=== PATIENT | female | born 1955 | race Caucasian/White ===

== ENCOUNTER 2020-02-04 17:26 | Emergency (ER) | payer MEDICARE, MEDICAID, SELFPAY ==
[2020-02-04 17:27] VITALS: BP 140/97; PULSE 127; RESP 20; TEMP 36.6; O2SAT 96; BMI 18.5
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
[2020-02-04] MEDS: Morphine 4 MG/ML Syringe IV (18:55)
--- NOTE | 2020-02-04 18:56 | RAD_ITS ---
STUDY: X-RAY - RIGHT KNEE REASON FOR EXAM: Female, 65 years old. PAIN TO PATELLA WITH SWELLING S/P FALLING ONTO KNEE TECHNIQUE: 2 view(s) of the knee. COMPARISON: None. FINDINGS: Normal visualized distal femur. Normal visualized proximal tibia and fibula. Normal proximal tibiofibular articulation. Normal medial femorotibial compartment. Normal lateral femorotibial compartment. Normal patellofemoral articulation. There is a large volume joint effusion. The soft tissue structures are unremarkable. RAD/Knee 1 or 2 Views IMPRESSION: Large effusion. No fracture identified. Electronically Signed: Guero Thompson MD at 19:32 EDT , Service support ,
[2020-02-04 21:02] VITALS: RESP 18
== END 2020-02-04 21:03 | disposition home or self-care (01) ==
PROVIDERS: Emergency Provider Emergency Medicine
DX: M25.461 Effusion, right knee (principal); S80.01XA Contusion of right knee, initial encounter; W01.0XXA Fall on same level from slipping, tripping and stumbling without subsequent striking against object, initial encounter; Y93.9 Activity, unspecified; Y92.9 Unspecified place or not applicable; F17.200 Nicotine dependence, unspecified, uncomplicated
CPT/HCPCS: 73560; 96374; 99284; A4216

== ENCOUNTER 2021-02-08 21:22 | Emergency (ER) | payer MEDICARE, MEDICAID, SELFPAY ==
[2021-02-08 21:22] VITALS: BP 135/83; PULSE 85; RESP 22; TEMP 36.4; O2SAT 92; BMI 18.5
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
--- NOTE | 2021-02-08 22:07 | EKG12_ITS ---
Test Reason : DYSRHYTHMIA Blood Pressure : / mmHG Vent. Rate : 093 BPM Atrial Rate : 093 BPM P-R Int : 098 ms QRS Dur : 082 ms QT Int : 390 ms P-R-T Axes : 076 085 072 degrees QTc Int : 484 ms Sinus rhythm with short MS Otherwise normal ECG Confirmed by ANNITA NJ, SEBASTIAN ([id number]), script editor MIMI HAILE ([id number]) on 02/11/2021 1:02:10 PM Referred By: PUNEET Confirmed By:SEBASTIAN ARIZA MD
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
--- NOTE | 2021-02-08 22:09 | RAD_ITS ---
STUDY: X-RAY - RIGHT FEMUR REASON FOR STUDY: Female, 66 years old. pain TECHNIQUE: 4 view(s) of the femur. COMPARISON: None. FINDINGS: Acute, nondisplaced intertrochanteric fracture of the right femur extending into the proximal shaft. No angulation. Joint spaces are well-maintained. Soft tissues are unremarkable. No radiopaque foreign body or soft tissue gas. RAD/Femur Min 2 Views IMPRESSION: Acute intertrochanteric fracture of the femur as described. Electronically Signed: Brittni Mak MD at 23:30 EDT Tel , Service support ,
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
[2021-02-08] MEDS: Ondansetron 4 MG/2 ML Vial IV (22:26)
[2021-02-08] MEDS: Diphth,Pertuss(Acell),Tet Vac 0.5 ML Vial IM (22:26)
[2021-02-08] MEDS: Morphine 4 MG/ML Syringe IV (22:26)
[2021-02-08 22:37] LABS: Absolute Lymphocyte Count 3.12 X10^3/uL (0.83-4.51); Absolute Neutrophil Count 11.9 X10^3/uL (2.0-7.7); Basophil# 0.07 X10^3/uL; Basophil% 0.4 % (0-1); Eosinophil# 0.17 X10^3/uL; Eosinophils% 1.1 % (0-5); Hematocrit 44.6 % (37-47); Lymphocyte # 3.12 X10^3/ul (0.83-4.51); Lymphocyte % 19.5 % (19-41); Mean Corp Hgb Conc 33.6 g/dL (32-36); Mean Corpuscular Hgb 30.6 pg (27.0-32.0); Monocyte% 4.4 % (0-10); NRBC Flagged by Analyzer 0 % (0-5); Neutrophil # 11.88 X10^3/uL (2.7-7.7); Platelet Count 320 K/mm3 (150-450); RBC Distribution Width CV 13.5 % (11.6-14.6); RBC Distribution Width SD 45.8 fl (35.1-43.9)
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
--- NOTE | 2021-02-08 22:40 | ED.RN ---
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
[2021-02-08 22:47] LABS: International Normalized Ratio 0.9
[2021-02-08 23:11] LABS: AST(SGOT) 19 U/L (15-37); Alanine Aminotransfer ALT/SGPT 25 U/L (13-56); Albumin, Serum 3.8 g/dL (3.2-5.0); Alkaline Phosphatase 93 U/L (45-117); Anion Gap 9 (5-15); BUN 6 mg/dL (7-18); BUN/Creat Ratio 8.8 RATIO (10-20); Bilirubin, Direct 0.09 mg/dL (0.00-0.30); Calcium,Total 8.6 mg/dL (8.5-10.1); Chloride 100 mmol/L (98-107); Creatinine, Serum 0.68 mg/dL (0.55-1.02); EST Glomerular Filtration Rate 91 mL/min (>60); Est Glom Filt Rate - Afr Amer 111 mL/min (>60); Estimated Creatinine Clearance 37.14 ml/min; Globulin 3.1 g/dL (2.2-4.2); Glucose 106 mg/dL (74-106); Potassium 3.7 mmol/L (3.5-5.1); Protein, Total 6.9 g/dL (6.4-8.2); Sodium Level 136 mmol/L (136-145)
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
--- NOTE | 2021-02-08 23:31 | ED.RN ---
pt threatening to leave.pt cussing at the staff.md was at the bedside talking to patient and .pt states she had to void and refused a bed calderon. pt was standing on her legs even though she was told it may be broken.pt was [facility] to [facility] and specimen collected.
[2021-02-08 23:33] LABS: Bacteria 0 SEEN /hpf (None Seen); Mucous, Urine 0 SEEN /hpf (<or=2+); Squamous Epithelial Cells - UA 0 SEEN /hpf (5-10); White Blood Cells 0 SEEN /hpf (0-5)
[2021-02-08 23:34] LABS: Color, Urine Yellow (Yellow); Glucose, Dipstick Normal (Normal); Ketone-Dipstick Negative (Negative); Leukocyte Esterase-Dipstick Negative /ul (Negative); Nitrite-Dipstick Negative (Negative); Occult Blood-Urine 25 /ul (Negative); Protein-Dipstick Negative (Negative); Urine Bilirubin Dipstick Negative (Negative); Urine Clarity Clear (Clear); Urine Urobilinogen Normal (Normal)
[2021-02-08 23:35] VITALS: RESP 16
[2021-02-08 23:39] LABS: Red Blood Cells-Urine 0-5 SEEN /hpf (0-5)
[2021-02-09 01:13] VITALS: BP 150/98; PULSE 99; RESP 16; O2SAT 93
[2021-02-09 02:51] VITALS: BP 150/98; PULSE 94; RESP 16; TEMP 36.4; O2SAT 95
== END 2021-02-09 02:00 | disposition short-term general hospital (02) ==
LOC: ED 23:08
PROVIDERS: Emergency Provider Student in an Organized Health Care Education/Training Program
DX: S02.31XA Fracture of orbital floor, right side, initial encounter for closed fracture (principal); S02.40CA Maxillary fracture, right side, initial encounter for closed fracture; S02.40EA Zygomatic fracture, right side, initial encounter for closed fracture; S00.211A Abrasion of right eyelid and periocular area, initial encounter; S72.001A Fracture of unspecified part of neck of right femur, initial encounter for closed fracture; F10.129 Alcohol abuse with intoxication, unspecified; Y90.9 Presence of alcohol in blood, level not specified; V49.9XXA Car occupant (driver) (passenger) injured in unspecified traffic accident, initial encounter; Y93.9 Activity, unspecified; Y92.9 Unspecified place or not applicable; D72.829 Elevated white blood cell count, unspecified; F17.200 Nicotine dependence, unspecified, uncomplicated
CPT/HCPCS: 70450; 70486; 71045; 72125; 73552; 80048; 80076; 81001; 82077; 85025; 85610; 90715; 93005; 96374; 96375; 99285; A4216; J2405; J3490